=== PATIENT | male | born 1970 | race African-American/Black ===

== ENCOUNTER 2017-10-25 01:56 | Emergency (ER) | payer BC, OTHER ==
[2017-10-25 02:01] VITALS: BP 112/80
[2017-10-25] MEDS ORDERED: PENICILLIN V POTASSIUM 500 MG TABLET PO ONE (02:46)
[2017-10-25] MEDS ORDERED: HYDROCODONE/ACETAMINOPHEN 5-325 MG (6 TAB/ER DISP) PO PRN (02:46)
[2017-10-25] MEDS ORDERED: HYDROCODONE/ACETAMINOPHEN 5-325 MG TABLET PO ONE (02:46)
--- NOTE | 2017-10-25 02:52 | ER Document Report ---
ED General - General Chief Complaint: Toothache Stated Complaint: TOOTHACHE Time Seen by Provider: 10/25/17 02:37 Notes: Patient is a 47-year-old male presents with complaint of dental pain after he was eating tonight and his tooth broke. Is visiting from [place]. He says he will go back to 4 days where he can see his dentist. Denies any facial swelling. No difficulty breathing or swallowing. No fevers. No other complaints at this time. Pain is over the right lower molar. TRAVEL OUTSIDE OF THE [place] IN LAST 30 DAYS: No - Related Data Allergies/Adverse Reactions: No Known Allergies Allergy (Unverified 10/25/17 02:58) Past Medical History - Social History Smoking Status: Unknown if Ever Smoked Frequency of alcohol use: None Drug Abuse: None Family History: Reviewed & Not Pertinent Review of Systems - Review of Systems Notes: My Normal Review Basic REVIEW OF SYSTEMS: CONSTITUTIONAL : Denies fever, chills, or sweats. Denies recent illness. EENT: Dental pain RESPIRATORY: Denies shortness of breath, difficulty breathing, or wheezing. SKIN: Denies rash or skin lesions. NEUROLOGICAL: Denies sensory or motor loss. ALL OTHER SYSTEMS REVIEWED AND NEGATIVE. Physical Exam - Vital signs Vitals: Temp Pulse Resp BP Pulse Ox 98 F 85 18 112/80 98 10/25/17 02:00 10/25/17 02:00 10/25/17 02:00 10/25/17 02:00 10/25/17 02:00 - Notes Notes: General Appearance: Well nourished, alert, cooperative, no acute distress, moderate obvious discomfort. Vitals: reviewed, See vital signs table. Head: no swelling or tenderness to the head Eyes: PERRL, EOMI, Conjuctiva clear Mouth: Patient does have a fracture through the right lower molar. On examination to Touch the tooth and will split open. No active bleeding at this time. No gingival swelling. No facial swelling. Throat: No tonsillar inflammation, No airway obstruction, No lymphadenopathy Neck: Supple, no neck tenderness, No swelling Neuro: speech clear, oriented x 3, normal affect, responds appropriately to questions. Course - Re-evaluation Re-evalutation: 10/25/17 03:00 Patient be given pain medicine as well as antibiotics. He is to follow-up closely with dentist as soon as possible. Patient to return to ER if he has facial swelling, neck swelling, difficulty breathing or swallowing, or fevers. Patient agrees with plan and will be discharged home. Dictation of this chart was performed using voice recognition software; therefore, there may be some unintended grammatical errors. - Vital Signs Vital signs: Temp Pulse Resp BP Pulse Ox 98 F 85 18 112/80 98 10/25/17 02:00 10/25/17 02:00 10/25/17 02:00 10/25/17 02:00 10/25/17 02:00 Discharge - Discharge Clinical Impression: Pain, dental Condition: Good Disposition: HOME, SELF-CARE Instructions: Oral Narcotic Medication ([facility]), Penicillin V K ([facility]) Additional Instructions: Please call your dentist to make a follow up appointment as soon as possible. You need to follow up this week. Please return to the ER immediately if you develop fevers, and swelling below the jaw, difficulty breathing, or difficulty swallowing. Prescriptions: Hydrocodone/Acetaminophen [[place] 5-325 mg Tablet] 1 tab PO Q4 PRN #8 tablet PRN Reason: For Breakthrough Pain Penicillin V Potassium [Penicillin Vk 500 mg Tablet] 500 mg PO BID #14 tablet
== END 2017-10-25 03:02 | disposition home or self-care (01) ==
LOC: ER 01:56
DX: K08.9 Disorder of teeth and supporting structures, unspecified (principal)
CPT/HCPCS: 99282

== ENCOUNTER 2017-10-31 05:32 | Emergency (ER) | payer SELFPAY ==
[2017-10-31 05:45] VITALS: BP 103/80
--- NOTE | 2017-10-31 06:33 | ER Document Report ---
Doctor's Note Notes: 10/31/17 06:32 Notified by nursing staff the patient's walked out prior to being seen
== END 2017-10-31 06:35 | disposition left against medical advice (07) ==
LOC: ER 05:32
DX: Z53.21 Procedure and treatment not carried out due to patient leaving prior to being seen by health care provider (principal)

== ENCOUNTER 2017-11-03 21:48 | Emergency (ER) | payer SELFPAY ==
[2017-11-03 22:47] VITALS: BP 115/86
[2017-11-03] MEDS ORDERED: PENICILLIN V POTASSIUM 500 MG TABLET PO ONE (23:38)
--- NOTE | 2017-11-03 23:41 | ER Document Report ---
HPI - HPI Patient complains to provider of: Dental pain Pain Level: 5 Context: Patient is a 47-year-old male who comes emergency department for chief complaint of pain in his right lower jaw. He states he broke a tooth accidentally, he states he was seen here, completed antibiotics, but now the pain is starting to come back. He states he got stuck in the area longer than he thought he would because of a , states he has not been able to go home and be seen by his dentist and he will not be able to for at least 10 more days. He denies swelling of the face, sore throat, fever, neck pain. Past Medical History - General Information source: Patient - Social History Smoking Status: Current Some Day Smoker Drug Abuse: None Lives with: Family Family History: Reviewed & Not Pertinent Renal/ Medical History: Denies: Hx Peritoneal Dialysis - Immunizations Hx Diphtheria, Pertussis, Tetanus Vaccination: Yes Vertical Provider Document - CONSTITUTIONAL General Appearance: WD/WN, Thin - INFECTION CONTROL TRAVEL OUTSIDE OF THE [place] IN LAST 30 DAYS: No - HEENT HEENT: Atraumatic, Normocephalic Mouth Diagram: 1 - Dental fracture and dental caries, no noted erythema or swelling of the gumline, no abscess noted, normal oropharyngeal exam otherwise - NECK Neck: Normal Inspection - RESPIRATORY Respiratory: Breath Sounds Normal, No Respiratory Distress - CARDIOVASCULAR Cardiovascular: Regular Rate, Regular Rhythm - GI/ABDOMEN Gastrointestinal: Abdomen Soft, Abdomen Non-Tender - MUSCULOSKELETAL/EXTREMETIES Musculoskeletal/Extremeties: MAEW, FROM, Non-Tender - NEURO Level of Consciousness: Awake, Alert, Appropriate - DERM Integumentary: Warm, Dry, No Rash Course - Re-evaluation Re-evalutation: Provided with refills of antibiotics, provided with pain medication here, provided with referral to dentist locally to potentially get an extraction, discussed return precautions, patient states understanding and agreement. - Vital Signs Vital signs: Temp Pulse Resp BP Pulse Ox 98.4 F 88 20 115/86 H 100 11/03/17 22:47 11/03/17 22:47 11/03/17 22:47 11/03/17 22:47 11/03/17 22:47 Discharge - Discharge Clinical Impression: Pain, dental Condition: Stable Disposition: HOME, SELF-CARE Additional Instructions: Your examination shows a dental fracture, you appear to need multiple extractions. Please call the referral listed below tomorrow to arrange for follow-up and care. I recommend taking the penicillin as prescribed to prevent developing infection. Return for any concerning symptoms including swelling of the face. [facility] [address], [address] Prescriptions: Penicillin V Potassium [Penicillin Vk 500 mg Tablet] 500 mg PO BID #20 tablet
== END 2017-11-04 00:08 | disposition home or self-care (01) ==
LOC: ER 21:48
DX: K08.9 Disorder of teeth and supporting structures, unspecified (principal); R68.84 Jaw pain; F17.200 Nicotine dependence, unspecified, uncomplicated
CPT/HCPCS: 99282